=== PATIENT | female | born 1950 | race Caucasian/White ===

== ENCOUNTER → 2020-10-20 13:09 | Outpatient (BNVA) | payer MEDICARE, OTHER, SELFPAY | PROVIDERS: Family Provider Registered Nurse; PCP Registered Nurse; Visit Provider Surgery | DX: Z20.828 Contact with and (suspected) exposure to other viral communicable diseases (principal); Z01.812 Encounter for preprocedural laboratory examination | CPT/HCPCS: 87635 ==

== ENCOUNTER 2020-10-25 06:46 | Day surgery (SDC) | payer MEDICARE, OTHER, SELFPAY ==
[2020-10-23 13:07] VITALS: BMI 32.5
[2020-10-25 07:08] VITALS: BP 124/74; PULSE 86; RESP 20; TEMP 36.8; O2SAT 96
[2020-10-25] MEDS: sodium chloride 0.9% 1,000 ML 30 ML IV (07:40)
--- NOTE | 2020-10-25 07:50 | ANES.PREANE2 ---
Pre-Anesthetic Assessment Pre-Anesthetic Assessment: Height/Weight: Height 1.6 m Weight 83.461 kg Temp Pulse Resp BP Pulse Ox 98.2 F 86 20 H 124/74 96 10/25/20 07:08 10/25/20 07:08 10/25/20 07:08 10/25/20 07:08 10/25/20 07:08 Preop Diagnosis: History of colon polyps Proposed Procedure: Operation Date: 10/25/20 07:45 Proposed Procedures p Colonoscopy 58605 z86.010(Not Applicable) - Ambrocio Shah MD Familial anesthetic complications: None Was Beta Marty taken within 24 hours: N/A Last intake: Intake Last Liquid Date 10/24/20 Last Liquid Time 23:00 Last Solid Date 10/24/20 Last Solid Time 05:00 Social: Social History: No alcohol and No tobacco Exam: Pre-Anes Outpt Exam: alert, oriented x 3, clear to auscultation bilaterally and regular rate & rhythm Airway: Cervical ROM: WNL MP: 2 Dentition: Full Pulmonary: Pulmonary: COPD CV/HEM: CV/HEM: Afib (on xarelto) Metabolic: Metabolic: Hyperlipidemia Anesthetic Plan: ASA status: 3 Anesthesia: MAC Risk of > 500 ml blood loss (7ml/kg in children): No Meds/Allergies Current Medications: Current Medications Generic Name Dose Route Start Last Admin Trade Name Freq PRN Reason Stop Dose Admin Sodium Chloride 1,000 mls @ 30 ml s/hr 10/25/20 07:00 10/25/20 07:40 Sodium Chloride 0.9% IV 10/26/20 06:59 30 mls/hr .Q24H JOSE ALBERTO Administration PFSH Anesthesia PFSH: Medical History (Updated 09/29/20 @ 08:54 by Ambrocio Shah MD) Bleeding per rectum Chronic atrial fibrillation COPD (chronic obstructive pulmonary disease) Family history of colon cancer Family History Denies family history of Anesthesia complication Bleeding disorder Social History Smoking and tobacco status: former smoker Alcohol intake: never Data Anesthesia Cardiac Studies: No Data to Display
--- NOTE | 2020-10-25 07:51 | W.PM.OPSUD ---
Surgery/Procedure H&P Update DATE OF PROCEDURE: October 25, 2020 DATE H&P PERFORMED: 09/28/20 H&P UPDATE INFORMATION: I have reviewed H&P completed within last 30 days, I have examined patient prior to procedure and No changes to prior documentation PREOP DIAGNOSIS: History of colon polyps PRIMARY INDICATION FOR PROCEDURE: The same PLANNED PROCEDURE: Operation Date: 10/25/20 07:45 Proposed Procedures p Colonoscopy 57353 z86.010(Not Applicable) - Ambrocio Shah MD
[2020-10-25 08:39] VITALS: BP 84/60; PULSE 109; RESP 20; TEMP 36.1; O2SAT 93
--- NOTE | 2020-10-25 08:45 | ANE.PACU2 ---
Inpatient post-anesthesia follow up: Airway intact: Yes Vital signs: Temperature 97 F Pulse Rate 109 Respiratory Rate 20 Blood Pressure 84/60 Pulse Oximetry 93 Oxygen Delivery Me thod Nasal Cannula Oxygen Flow Rate 3 Fraction of Inspir ed Oxygen Hydration adequate: Yes Nausea and vomiting: No Pain level: 1 Mental status: Baseline
[2020-10-25 08:56] VITALS: BP 108/71; PULSE 90; RESP 18; O2SAT 96
== END 2020-10-25 09:10 | disposition home or self-care (01) ==
PROVIDERS: PCP Registered Nurse; Visit Provider Surgery
PROC: 0DJD8ZZ Inspection of Lower Intestinal Tract, Via Natural or Artificial Opening Endoscopic (ICD-10-PCS; CPT 45378; principal; 2020-10-25 07:45)
DX: Z86.010 Personal history of colon polyps (principal); D12.0 Benign neoplasm of cecum; D12.3 Benign neoplasm of transverse colon; D12.8 Benign neoplasm of rectum; K57.30 Diverticulosis of large intestine without perforation or abscess without bleeding; J44.9 Chronic obstructive pulmonary disease, unspecified; I48.91 Unspecified atrial fibrillation; E78.5 Hyperlipidemia, unspecified; Z80.0 Family history of malignant neoplasm of digestive organs; Z87.891 Personal history of nicotine dependence
CPT/HCPCS: 12345; 45380; 45385; 88305; J2704; J7030